=== PATIENT | female | born 1970 | race Caucasian/White ===

== ENCOUNTER 2021-07-18 07:36 | Day surgery (SDC) | payer MEDICARE, MEDICAID ==
[2021-07-18] VITALS (8 sets, daily range): BP systolic 119–151; BP diastolic 56–83
[2021-07-18] MEDS ORDERED: ARIP2TAB37 PO (07:53)
[2021-07-18] MEDS ORDERED: SERT-434 PO (07:54)
[2021-07-18] MEDS ORDERED: MORP60CP14 PO (07:55)
[2021-07-18] MEDS ORDERED: MORP15TA PO (07:56)
[2021-07-18] MEDS ORDERED: PREG100C PO (07:56)
[2021-07-18] MEDS ORDERED: MIDAZolam 1 MG/ML 5ML VIAL ONE ×2 (07:59→09:57)
[2021-07-18] MEDS ORDERED: fentaNYL/PF 50MCG/1 ML 2ML syringe ONE ×2 (07:59→09:57)
[2021-07-18] MEDS ORDERED: diphenhydrAMINE 50 mg/ml inj ONE (08:00)
[2021-07-18] MEDS ORDERED: proCHLORperazine 10 MG/2 ml inj ONE (08:00)
[2021-07-18] MEDS ORDERED: glucagon, human recombinant 1mg kit ONE ×2 (08:01)
[2021-07-18] MEDS ORDERED: levoFLOXACIN-Levaquin 500mg/D5 0 ML IV ONE (08:01)
[2021-07-18] MEDS ORDERED: iohexol 300 MG/1 ML 50ml polymer ONE (08:01)
[2021-07-18] MEDS ORDERED: epiNEPHrine 0.1mg/ml 10ml syringe ONE (10:47)
== END 2021-07-18 11:20 | disposition home or self-care (01) ==
LOC: GI LAB 07:36
PROVIDERS: ATTEND Internal Medicine Gastroenterology
DX: R10.11 Right upper quadrant pain (principal); K83.8 Other specified diseases of biliary tract; K44.9 Diaphragmatic hernia without obstruction or gangrene; K29.50 Unspecified chronic gastritis without bleeding
CPT/HCPCS: 43261; 43262; 74328; 99153; C1769; G0500; J0171; J0780; J1200; J1610; J2250; J3010; J7030; Q9967; Z7512; 88108; 88305; 88342; 99152; A4620; J1956

== ENCOUNTER 2024-05-04 08:59 | Emergency (ER) | payer MEDICARE, MEDICAID ==
[~2024-05-04] VITALS: Ht 162.6 cm; Wt 91.3 kg
[~2024-05-04 08:59] MED LIST: ARIP2TAB37 PO; MORP15TA PO; MORP60CP14 PO; PREG100C PO; SERT-434 PO
[2024-05-04 09:58] LABS: BASOPHILS % (AUTO) 0.2 % (0-1); EOSINOPHILS # (AUTO) 0.1 X10'3 (0-0.9); EOSINOPHILS % (AUTO) 0.9 % (0-6); HEMATOCRIT 41.9 % (35.0-45.0); HEMOGLOBIN 14.1 g/dl (12.0-16.0); LYMPHOCYTES # (AUTO) 1.7 X10'3 (1.1-4.8); LYMPHOCYTES % (AUTO) 19.9 % (21-51); MEAN CORPUSCULAR HEMOGLOBIN 27.5 PG (27.0-31.0); MEAN CORPUSCULAR HGB CONC 33.6 g/dL (33.0-36.5); MEAN CORPUSCULAR VOLUME 81.8 FL (78-98); MEAN PLATELET VOLUME 8.2 FL (7.4-10.4); MONOCYTES # (AUTO) 0.4 X10'3 (0-0.9); MONOCYTES % (AUTO) 5.1 % (2-12); NEUTROPHILS # (AUTO) 6.3 X10'3 (1.8-7.7); NEUTROPHILS % (AUTO) 73.9 % (42-75); PLATELET COUNT 335 X10'3 (140-440); RED BLOOD COUNT 5.12 X10'6 (4.20-5.60); RED CELL DISTRIBUTION WIDTH 14.5 % (11.5-14.5); WHITE BLOOD COUNT 8.5 X10'3 (4.5-11.0)
[2024-05-04 10:06] LABS: ALANINE AMINOTRANSFERASE 30 U/L (12-78); ALBUMIN 3.9 G/DL (3.4-5.0); ALKALINE PHOSPHATASE 90 IU/L (46-116); ANION GAP 7 (8-16); ASPARTATE AMINO TRANSFERASE 16 U/L (10-37); BILIRUBIN,TOTAL 0.4 MG/DL (0.1-1.0); BLOOD UREA NITROGEN 9 MG/DL (7-18); BUN/CREATININE RATIO 12.2 (10.0-20.0); CALCIUM 9.4 MG/DL (8.5-10.1); CHLORIDE 106 MMOL/L (99-107); CREATININE 0.74 MG/DL (0.40-0.90); GLUCOSE 141 MG/DL (70-104); POTASSIUM 3.4 MMOL/L (3.5-5.1); SODIUM 141 MMOL/L (135-145); TOTAL CARBON DIOXIDE 28.2 MMOL/L (24-32); eCRCL 76 ML/MIN; eGFR 82 ML/MIN
[2024-05-04 10:09] LABS: PRO BRAIN NATRIURETIC PEPTIDE 31 PG/ML (0-125)
[2024-05-04 11:10] VITALS: BP 144/71; PULSE 71; RESP 19; O2SAT 98
[2024-05-04 11:38] VITALS: TEMP 99.1
== END 2024-05-04 11:39 | disposition home or self-care (01) ==
LOC: ER 08:59
DX: R07.89 Other chest pain (principal); G89.29 Other chronic pain; Z79.899 Other long term (current) drug therapy
CPT/HCPCS: 36415; 71045; 80053; 83880; 84484; 85025; 93005; 99285